=== PATIENT | female | born 2000 | race Caucasian/White ===

== ENCOUNTER 2020-02-19 04:19 | Emergency (ER) | payer MEDICAID ==
[~2020-02-19] VITALS: Ht 149.9 cm; Wt 44.5 kg
[2020-02-19] MEDS ORDERED: diphenhydrAMINE 50 mg/ml inj IV ONE (04:40)
[2020-02-19] MEDS ORDERED: metoclopramide 5 mg/ml inj IV ONE (04:40)
[2020-02-19] MEDS ORDERED: normal saline 1000ML IV soln IVB ONE (04:40)
[2020-02-19] MEDS ORDERED: ketorolac trometh. 30mg/ml inj. IV ONE ×2 (04:40→05:50)
--- NOTE | 2020-02-19 05:45 | NUR ---
DR. KINGSLEY AT BEDSIDE ASSESSING PATIENT, PATIENTS CHIEF COMPLAINT UNCHANGED DR. KINGSLEY VERBALIZED THAT NEW ORDERS WILL BE PUT IN
[2020-02-19 05:46] LABS: BASOPHILS % (AUTO) 0.3 % (0-1); EOSINOPHILS # (AUTO) 0.1 X10'3 (0-0.9); EOSINOPHILS % (AUTO) 1.6 % (0-6); HEMATOCRIT 45.4 % (35.0-45.0); HEMOGLOBIN 15.6 g/dl (12.0-16.0); LYMPHOCYTES # (AUTO) 1.3 X10'3 (1.1-4.8); LYMPHOCYTES % (AUTO) 21.9 % (21-51); MEAN CORPUSCULAR HEMOGLOBIN 32.5 PG (27.0-31.0); MEAN CORPUSCULAR HGB CONC 34.5 g/dL (33.0-36.5); MEAN CORPUSCULAR VOLUME 94.2 FL (78-98); MEAN PLATELET VOLUME 7.6 FL (7.4-10.4); MONOCYTES # (AUTO) 0.5 X10'3 (0-0.9); MONOCYTES % (AUTO) 8.2 % (2-12); PLATELET COUNT 233 X10'3 (140-440); RED BLOOD COUNT 4.82 X10'6 (4.20-5.60); RED CELL DISTRIBUTION WIDTH 12.7 % (11.5-14.5)
[2020-02-19] MEDS ORDERED: fentaNYL/PF 50MCG/1 ML 2ML syringe IV ONE (05:50)
[2020-02-19] MEDS ORDERED: proCHLORperazine 10 MG/2 ml inj IV ONE (05:55)
[2020-02-19 06:05] LABS: ALANINE AMINOTRANSFERASE 13 U/L (12-78); ALBUMIN/GLOBULIN RATIO 1.2 (1.1-1.5); ALKALINE PHOSPHATASE 122 IU/L (46-116); ANION GAP 10 (8-16); ASPARTATE AMINO TRANSFERASE 19 U/L (10-37); BILIRUBIN,TOTAL 0.5 MG/DL (0.1-1.0); BLOOD UREA NITROGEN 10 MG/DL (7-18); BUN/CREATININE RATIO 14.1 (6.6-38.0); CHLORIDE 101 MMOL/L (99-107); CREATININE 0.71 MG/DL (0.40-0.90); GLUCOSE 103 MG/DL (70-104); POTASSIUM 3.6 MMOL/L (3.5-5.1); SODIUM 140 MMOL/L (135-145); TOTAL CARBON DIOXIDE 28.6 MMOL/L (24-32); TOTAL PROTEIN 9.3 G/DL (6.4-8.2); eGFR > 90 ML/MIN
[2020-02-19] MEDS ORDERED: SUMAtriptan succ. 6 MG/0.5ml vial SQ ONE (06:20)
[2020-02-19 08:10] VITALS: BP 110/65
[2020-02-19] MEDS ORDERED: DICY10CA88 PO (23:58)
[2020-02-19] MEDS ORDERED: MAG355OR18 PO (23:58)
== END 2020-02-19 08:22 | disposition home or self-care (01) ==
LOC: ER 04:20
DX: G43.909 Migraine, unspecified, not intractable, without status migrainosus (principal); R11.10 Vomiting, unspecified; Z90.710 Acquired absence of both cervix and uterus; Z88.8 Allergy status to other drugs, medicaments and biological substances; Z88.5 Allergy status to narcotic agent
CPT/HCPCS: 36415; 80053; 85025; 96361; 96372; 96374; 96375; 99284; J1200; J1885; J2765; J3010; J7030; J3030

== ENCOUNTER 2020-02-19 20:57 | Emergency (ER) | payer MEDICAID ==
[~2020-02-19] VITALS: Ht 149.9 cm; Wt 45.9 kg
--- NOTE | 2020-02-19 21:17 | NUR ---
pt received a total of 75mg of imitrex in past 2 1/2 hours per mom and zofran 4mg approx 3 1/2 hours ago, at this time pt is resting quietly on gurney in dark room waiting to be evaluated
[2020-02-19] MEDS ORDERED: dexamethasone sod phosphate 10mg/ml inj IV STA (21:33)
[2020-02-19] MEDS ORDERED: diphenhydrAMINE 50 mg/ml inj IV ONE (21:35)
[2020-02-19] MEDS ORDERED: proCHLORperazine 10 MG/2 ml inj IV ONE (21:35)
[2020-02-19] MEDS ORDERED: dicyclomine 10 MG capsule PO ONE (21:35)
[2020-02-19] MEDS ORDERED: ketorolac tromethamine 15mg/ml inj. IV ONE (21:35)
[2020-02-19] MEDS ORDERED: normal saline 1000ML IV soln IVB ONE (21:35)
--- NOTE | 2020-02-19 22:01 | NUR ---
attempted IV x2, no success, another RN to try
[2020-02-19] MEDS ORDERED: mag hydrox/Alum hydrox/simeth 30ml oral suspension PO ONE (22:05)
[2020-02-19 22:31] LABS: CLARITY,URINE CLEAR (Clear); COLOR,URINE STRAW (Yellow); GLUCOSE, URINE NEGATIVE (Neg); KETONES,URINE NEGATIVE (Neg); LEUKOCYTE ESTERASE ,URINE NEGATIVE (Neg); NITRITES, URINE NEGATIVE (Neg); OCCULT BLOOD,URINE NEGATIVE (Neg); PH,URINE 7.5 (4.8-8.0); PROTEIN,URINE NEGATIVE (Neg); UROBILINOGEN,URINE 0.2 E.U/dL (0.2-1.0)
[2020-02-19 22:34] LABS: UA COLLECTION TYPE CLN CATCH MIDSTREAM
--- NOTE | 2020-02-19 22:38 | NUR ---
PT TO XRAY
[2020-02-19] MEDS ORDERED: MAG355OR18 PO (23:58)
[2020-02-19] MEDS ORDERED: DICY10CA88 PO (23:58)
[2020-02-20 00:18] VITALS: BP 117/70
== END 2020-02-20 00:20 | disposition home or self-care (01) ==
LOC: ER 20:58
DX: R10.84 Generalized abdominal pain (principal); R51 Headache; Z90.710 Acquired absence of both cervix and uterus; Z88.5 Allergy status to narcotic agent; Z88.8 Allergy status to other drugs, medicaments and biological substances
CPT/HCPCS: 74018; 81003; 96374; 96375; 99284; J0780; J1100; J1200; J1885; J7030; 96361

== ENCOUNTER 2020-05-18 07:37 | Emergency (ER) | payer MEDICAID ==
[~2020-05-18] VITALS: Ht 149.9 cm; Wt 44.5 kg
[~2020-05-18 07:37] MED LIST: DICY10CA88 PO
[2020-05-18] MEDS ORDERED: acetaminophen 325mg tablet PO ONE (07:50)
[2020-05-18] MEDS ORDERED: LORazepam 2 mg/ml vial IV ONE ×2 (08:05→10:45)
[2020-05-18 08:25] LABS: BASOPHILS % (AUTO) 0.4 % (0-1); EOSINOPHILS # (AUTO) 0.2 X10'3 (0-0.9); EOSINOPHILS % (AUTO) 3.5 % (0-6); HEMATOCRIT 41.9 % (35.0-45.0); HEMOGLOBIN 14.3 g/dl (12.0-16.0); LYMPHOCYTES # (AUTO) 1.8 X10'3 (1.1-4.8); LYMPHOCYTES % (AUTO) 40.7 % (21-51); MEAN CORPUSCULAR HEMOGLOBIN 31.9 PG (27.0-31.0); MEAN CORPUSCULAR HGB CONC 34.2 g/dL (33.0-36.5); MEAN CORPUSCULAR VOLUME 93.3 FL (78-98); MEAN PLATELET VOLUME 7.6 FL (7.4-10.4); MONOCYTES # (AUTO) 0.4 X10'3 (0-0.9); MONOCYTES % (AUTO) 9.4 % (2-12); PLATELET COUNT 198 X10'3 (140-440); RED BLOOD COUNT 4.49 X10'6 (4.20-5.60); RED CELL DISTRIBUTION WIDTH 12.8 % (11.5-14.5); WHITE BLOOD COUNT 4.4 X10'3 (4.5-11.0)
[2020-05-18 08:37] LABS: ALANINE AMINOTRANSFERASE 14 U/L (12-78); ALBUMIN 4.3 G/DL (3.4-5.0); ALBUMIN/GLOBULIN RATIO 1.3 (1.1-1.5); ALKALINE PHOSPHATASE 97 IU/L (46-116); ANION GAP 11 (8-16); ASPARTATE AMINO TRANSFERASE 17 U/L (10-37); BILIRUBIN,TOTAL 0.4 MG/DL (0.1-1.0); BLOOD UREA NITROGEN 13 MG/DL (7-18); BUN/CREATININE RATIO 16.9 (6.6-38.0); CALCIUM 9.1 MG/DL (8.5-10.1); CHLORIDE 102 MMOL/L (99-107); CREATININE 0.77 MG/DL (0.40-0.90); GLUCOSE 91 MG/DL (70-104); POTASSIUM 3.7 MMOL/L (3.5-5.1); SODIUM 139 MMOL/L (135-145); TOTAL CARBON DIOXIDE 26.3 MMOL/L (24-32); TOTAL PROTEIN 7.7 G/DL (6.4-8.2); eGFR > 90 ML/MIN
[2020-05-18 09:01] LABS: CLARITY,URINE CLEAR (Clear); COLOR,URINE YELLOW (Yellow); GLUCOSE, URINE NEGATIVE (Neg); KETONES,URINE NEGATIVE (Neg); LEUKOCYTE ESTERASE ,URINE NEGATIVE (Neg); NITRITES, URINE NEGATIVE (Neg); OCCULT BLOOD,URINE NEGATIVE (Neg); PROTEIN,URINE NEGATIVE (Neg); UROBILINOGEN,URINE 0.2 E.U/dL (0.2-1.0)
[2020-05-18 09:02] LABS: UA COLLECTION TYPE STRAIGHT CATH
--- NOTE | 2020-05-18 09:13 | NUR ---
Responded to call light where mother stated pt is seizing. Observed jerking motion by pt inconsistent with what this RN has experienced with other seizing pts. Dimmed lights, closed door and put on relaxing music. Pt's heart rate which was 139 while in motion decreased to 123 with no movement. Pt remained calm, opening eyes looking for Mother who was bedside. When pt made eye contact with her Mother she tightly closed her eyes and started moving her head side:side, with slight increase in HR to 131 noted. Mother shared pt does not feel pain and has a hx of acute illnesses d/t to pt's inability to sense pain or communicate pain specifics.
[2020-05-18] MEDS ORDERED: normal saline 1000ML IV soln IVB ONE (10:15)
[2020-05-18] MEDS ORDERED: iohexol 300mg/ml 100ml inj. ONE (10:27)
[2020-05-18 10:35] LABS: URINE HCG NEGATIVE (NEG)
[2020-05-18] MEDS ORDERED: Levetiracetam-NS 500mg/100ml 100 ML IV ONE (13:44)
[2020-05-18] MEDS ORDERED: mag hydrox/Alum hydrox/simeth 30ml oral suspension PO ONE (13:45)
[2020-05-18] MEDS ORDERED: LIDOcaine Viscous 15ml cup TP ONE (13:45)
--- NOTE | 2020-05-18 17:20 | NUR ---
Pt with N/V, reported to MD Mclaughlin and received VO for Zofran 4mg, IV x 1 now.
[2020-05-18] MEDS ORDERED: ondansetron/PF 4mg/2ml inj IV ONE (17:25)
--- NOTE | 2020-05-18 19:23 | NUR ---
REPORT TO REACH RNAND THEN TO CARLOS PURI AT [facility]. PTS MOTHER UPDATED THAT SHE IS UNABLE TO FLY WITH THEM. SHE WILL BEGIN DRIVING DOWN THERE NOW. PT WITH HR 120, OTHERWISE VSS. PT DENIES ANY PAIN.
[2020-05-18 19:24] VITALS: BP 111/64
== END 2020-05-18 19:26 | disposition short-term general hospital (02) ==
LOC: ER 07:38
DX: R56.9 Unspecified convulsions (principal); R10.32 Left lower quadrant pain; G43.909 Migraine, unspecified, not intractable, without status migrainosus; Z90.710 Acquired absence of both cervix and uterus; Z88.8 Allergy status to other drugs, medicaments and biological substances; Z88.5 Allergy status to narcotic agent; Z79.899 Other long term (current) drug therapy
CPT/HCPCS: 36415; 71045; 74177; 80053; 81003; 81025; 83735; 85025; 87635; 96361; 96374; 96375; 96376; 99285; C9803; J1953; J2060; J2405; J7030; Q9967

== ENCOUNTER 2021-07-13 10:43 | Emergency (ER) | payer MEDICAID ==
[~2021-07-13] VITALS: Ht 149.9 cm; Wt 49.1 kg
[2021-07-13 12:09] LABS: URINE HCG NEGATIVE (NEG)
[2021-07-13 12:10] LABS: BASOPHILS % (AUTO) 0.4 % (0-1); EOSINOPHILS # (AUTO) 0.1 X10'3 (0-0.9); EOSINOPHILS % (AUTO) 2.3 % (0-6); HEMATOCRIT 41.3 % (35.0-45.0); LYMPHOCYTES # (AUTO) 1.8 X10'3 (1.1-4.8); LYMPHOCYTES % (AUTO) 33.7 % (21-51); MEAN CORPUSCULAR HEMOGLOBIN 31.6 PG (27.0-31.0); MEAN CORPUSCULAR HGB CONC 33.8 g/dL (33.0-36.5); MEAN CORPUSCULAR VOLUME 93.6 FL (78-98); MEAN PLATELET VOLUME 7.9 FL (7.4-10.4); MONOCYTES # (AUTO) 0.4 X10'3 (0-0.9); NEUTROPHILS % (AUTO) 55.6 % (42-75); PLATELET COUNT 284 X10'3 (140-440); RED BLOOD COUNT 4.41 X10'6 (4.20-5.60); WHITE BLOOD COUNT 5.3 X10'3 (4.5-11.0)
[2021-07-13 12:22] LABS: ALANINE AMINOTRANSFERASE 14 U/L (12-78); ALBUMIN 4.5 G/DL (3.4-5.0); ALBUMIN/GLOBULIN RATIO 1.2 (1.1-1.5); ALKALINE PHOSPHATASE 114 IU/L (46-116); ANION GAP 10 (8-16); ASPARTATE AMINO TRANSFERASE 16 U/L (10-37); BILIRUBIN,TOTAL 0.3 MG/DL (0.1-1.0); BLOOD UREA NITROGEN 10 MG/DL (7-18); BUN/CREATININE RATIO 15.6 (6.6-38.0); CALCIUM 9.2 MG/DL (8.5-10.1); CHLORIDE 102 MMOL/L (99-107); CREATININE 0.64 MG/DL (0.40-0.90); GLUCOSE 98 MG/DL (70-104); POTASSIUM 3.5 MMOL/L (3.5-5.1); SODIUM 140 MMOL/L (135-145); TOTAL CARBON DIOXIDE 28.4 MMOL/L (24-32); TOTAL PROTEIN 8.3 G/DL (6.4-8.2); eGFR > 90 ML/MIN
[2021-07-13 12:23] LABS: URINE AMPHETAMINE SCREEN NEGATIVE (Neg); URINE BARBITUATE SCREEN NEGATIVE (Neg); URINE BENZODIAZEPINES SCREEN NEGATIVE (Neg); URINE CANNABINOID SCREEN NEGATIVE (Neg); URINE COCAINE SCREEN NEGATIVE (Neg); URINE METHADONE SCREEN NEGATIVE (Neg); URINE OPIATE SCREEN NEGATIVE (Neg); URINE PHENCYCLIDINE SCREEN NEGATIVE (Neg)
[2021-07-13 12:25] LABS: COLOR,URINE YELLOW (Yellow); GLUCOSE, URINE NEGATIVE (Neg); KETONES,URINE NEGATIVE (Neg); LEUKOCYTE ESTERASE ,URINE NEGATIVE (Neg); NITRITES, URINE NEGATIVE (Neg); OCCULT BLOOD,URINE NEGATIVE (Neg); PROTEIN,URINE NEGATIVE (Neg); UA COLLECTION TYPE CLN CATCH MIDSTREAM; UROBILINOGEN,URINE 0.2 E.U/dL (0.2-1.0)
[2021-07-13 12:29] LABS: BACTERIA,URINE 3+ /HPF (Neg); CLARITY,URINE SLIGHTLY CLOUDY (Clear); RBC,URINE NONE SEEN /HPF (0-2); WBC,URINE 0-4 /HPF (0-4)
[2021-07-13 12:30] LABS: MUCUS STRANDS FEW /LPF (Neg); SQUAMOUS EPITHELIAL CELL,UR MODERATE /LPF (FEW)
[2021-07-13 12:32] LABS: ETHANOL < 0.010 GM/DL (0.0-0.010)
--- NOTE | 2021-07-13 14:19 | NUR ---
Received pt to overflow bed 20 at 1410. Pt ambulated independently with sheet writer. Pt presents as calm and cooperative, a little shy. Pt's mother left to obtain a Covid test. Pt is developmental delayed. Pt is able to make needs known.
--- NOTE | 2021-07-13 14:35 | NUR ---
Pt was compliant with admit process. Pt changed into green scrubs and was given a snack. Pulled T.V out for pt.
--- NOTE | 2021-07-13 15:33 | NUR ---
Pt watching T.V pt calm/cooperative.
[2021-07-13] MEDS ORDERED: NORT50CA PO (15:59)
[2021-07-13] MEDS ORDERED: AMAN100C20 PO (15:59)
[2021-07-13] MEDS ORDERED: SUMA100T16 PO (15:59)
--- NOTE | 2021-07-13 16:10 | NUR ---
PACKET FAXED TO [facility]
--- NOTE | 2021-07-13 17:24 | NUR ---
Pt lying on bed with arms crossed, mother at bedside. [facility] trying to safety plan with patient. Pt being obstinant with mother. Pt was compliant with vitals.
--- NOTE | 2021-07-13 17:36 | NUR ---
[facility] NUMBER [phone].
--- NOTE | 2021-07-13 19:00 | NUR ---
The patient appears calm. She denies thoughts to harm herself or others. When asked why she was here she stated that she did not know. When asked she stated that her mood was "good"
--- NOTE | 2021-07-13 19:13 | NUR ---
One to one with the patient who ate 100% of her dinner and then resting quietly on her bed.
[2021-07-13] MEDS: AMANTADINE 100MG CAPSULE PO SCH (20:17)
--- NOTE | 2021-07-13 20:54 | NUR ---
The patient appears to be sleeping
--- NOTE | 2021-07-13 22:45 | NUR ---
The patient appears to be sleeping
--- NOTE | 2021-07-13 23:55 | NUR ---
The patient had complained of a migraine ZAVALA and med given and now appears to be sleeping
--- NOTE | 2021-07-14 01:44 | NUR ---
The patient appears to be sleeping
--- NOTE | 2021-07-14 03:51 | NUR ---
The patient appears to be sleeping
[2021-07-14 05:14] VITALS: BP 122/84
--- NOTE | 2021-07-14 05:21 | NUR ---
The patient moved to bed 9 in the main ER and was cooperative with the move
[2021-07-14] MEDS ORDERED: nortriptyline 25mg capsule PO SCH (08:00)
[2021-07-14] MEDS: AMANTADINE 100MG CAPSULE PO SCH (08:00)
[2021-07-14] MEDS ORDERED: SUMAtriptan 25 MG tablet PO PRN (08:00)
== END 2021-07-14 10:48 ==
LOC: ER 10:44
DX: T14.91XA Suicide attempt, initial encounter (principal); R62.50 Unspecified lack of expected normal physiological development in childhood; Q28.3 Other malformations of cerebral vessels; G40.909 Epilepsy, unspecified, not intractable, without status epilepticus; G43.909 Migraine, unspecified, not intractable, without status migrainosus; Z88.8 Allergy status to other drugs, medicaments and biological substances; Z79.899 Other long term (current) drug therapy; Z90.710 Acquired absence of both cervix and uterus; Y93.89 Activity, other specified; Y92.89 Other specified places as the place of occurrence of the external cause; Y99.8 Other external cause status
CPT/HCPCS: 36415; 80053; 80305; 80320; 81001; 81025; 84443; 85025; 99285